=== PATIENT | male | born 1975 | race Two or more races ===

== ENCOUNTER 2024-11-29 07:52 | Emergency (ER) | payer MEDICAID, OTHER ==
[~2024-11-29] VITALS: Ht 170.2 cm; Wt 90.7 kg
[2024-11-29 08:05] VITALS: TEMP 98.5
[2024-11-29 10:17] VITALS: BP 156/100; PULSE 85; RESP 16; O2SAT 95
--- NOTE | 2024-11-29 10:42 | ED.PDOC ---
Back pain HPI HPI Comments A 48 year old male presents to the ED c/o right-sided neck pain. Patient states he woke up today at about 0400 and was experiencing right-sided neck pain that is worse with movement. Denies neck injury, fever, SOB, chest pain, abdominal pain, nausea, vomiting, diarrhea, headache, dizziness, vision changes, or numbness/tingling of extremities. No other symptoms or modifying factors reported at this time. Patient is alert and oriented x4 and has a stable gait. Chief Complaint: Neck Pain Time Seen by MD: 08:14 Reviewed Notes: Nurses Notes, Medications, Allergies Allergies: Coded Allergies: NO KNOWN ALLERGIES (Unverified , 11/29/24) Home Meds Active Scripts Naproxen (Naproxen) 500 Mg Tab, 500 MG PO BIDPC for 10 Days, #20 TAB 0 Refills Prov:MARY GARRISON NP 11/29/24 Methocarbamol (Methocarbamol) 500 Mg Tab, 500 MG PO Q6HP PRN for 10 Days, #40 TAB 0 Refills Prov:MARY GARRISON NP 11/29/24 Information Source: Patient Mode of Arrival: Ambulatory Timing: Hours Duration: Since onset, Hours Location of Back pain: (R) Cervical Severity: Moderate Prehospital treatment: None Quality: Aching, Cramping Onset: Spontaneous History of: None Modifying Factors: Movement Associated signs and symptoms: None Past Medical History PAST MEDICAL HISTORY: Denies Surgical History: Denies all surgeries Social History Smoker: Non-Smoker Alcohol: Denies ETOH Use Drugs: Denies Drug Use Lives In: Home Constitutional: denies: chills, diaphoresis, fatigue, fever, malaise, sweats, weakness, others EENTM: denies: blurred vision, double vision, ear bleeding, ear discharge, ear drainage, ear pain, ear ringing, eye pain, eye redness, hearing loss, mouth pain, mouth swelling, nasal discharge, nose bleeding, nose congestion, nose pain, photophobia, tearing, throat pain, throat swelling, voice changes, others Respiratory: denies: cough, hemoptysis, orthopnea, SOB at rest, shortness of breath, SOB with excertion, stridor, wheezing, others Cardiovascular: denies: chest pain, dizzy spells, diaphoresis, Dyspnea on exe rtion, edema, irregular heart beat, left arm pain, lightheadedness, palpitations, PND, syncope, others Gastrointestinal: denies: abdomen distended, abdominal pain, blood streaked bowels, constipated, diarrhea, dysphagia, difficulty swallowing, hematemesis, melena, nausea, poor appetite, poor fluid intake, rectal bleeding, rectal pain, vomiting, others Genitourinary: denies: burning, dysuria, flank pain, frequency, hematuria, incontinence, penile discharge, penile sore, pain, testicle pain, testicle swelling, urgency, others Neurological: denies: dizziness, fainting, headache, left sided numbness, left sided weakness, numbness, paresthesia, pre-existing deficit, right sided numbness, right sided weakness, seizure, speech problems, tingling, tremors, weakness, others Musculoskeletal: reports: neck pain; denies: back pain, gout, joint pain, joint swelling, muscle pain, muscle stiffness, others Integumetry: denies: bruises, change in color, change in hair/nails, dryness, laceration, lesions, lumps, rash, wounds, others Allergic/Immunocompromised: denies: Difficulty Healing, Frequent Infections, Hives, Itching, others Hematologic/Lymphatic: denies: anemia, blood clots, easy bleeding, easy bruising, swollen glands, others Endocrine: denies: excessive hunger, excessive sweating, excessive thirst, excessive urination, flushing, intolerance to cold, intolerance to heat, unexplained weight gain, unexplained weight loss, others Psychiatric: denies: anxiety, bipolar disorder, depression, hopeless, panic disorder, schizophrenia, sleepless, suicidal, others All Other Systems: Reviewed and Negative Physical Exam General Appearance: No Apparent Distress, Normal HEENT: Normal ENT Inspection, Pharynx Normal, TMs Normal Neck: Limited Range of Motion, Other (Spurling's test positive) Respiratory: Chest Non-Tender, Lungs Clear, No Accessory Muscle Use, No Respiratory Distress, Normal Breath Sounds Cardiovascular: No Edema, No JVD, No Murmur, No Gallop, Normal Peripheral Pulses, Regular Rate/Rhythm Breast Exam: Deferred Gastrointestinal: No Organomegaly, Non Tender, No Pulsatile Mass, Normal Bowel Sounds, Soft Genitalia: Deferred Pelvic: Deferred Rectal: Deferred Extremities: No calf tenderness, Normal capillary refill, Normal inspection, Normal range of motion, Non-tender, No pedal edema Musculoskeletal : Apperance: Normal Neurologic: Alert, roto rooter operator II-XII nml as Tested, No Motor Deficits, Normal Affect, Normal Mood, No Sensory Deficits Cerebellar Function: Normal Reflexes: Normal Skin: Dry, Normal Color, Warm Lymphatic: No Adenopathy Was a procedure done? Was a procedure done?: No Back Pain Differential Dx Differential Diagnosis: Musculoskeletal Pain, Other (Torticollis, cervical radiculopathy, cervical muscle strain) X-Ray, Labs, Meds, VS Vital Signs Date Time Temp Pulse Resp B/P (MAP) Pulse Ox O2 Delivery O2 Flow Rate FiO2 11/29/24 10:17 85 16 156/100 (118) 95 11/29/24 08:05 98.5 72 20 150/97 (114) 97 98.5 X-Ray, Labs, Meds, VS Comment + neck pain radiating to bilateral upper extremities ED Workup: Defer C-Spine imaging given negative by NEXUS criteria Given History, Exam the patient appears to have a cervical radiculopathy. Patient appears to be low risk for complications or other emergent conditions such as anginal equivalent, renea cervical instability, arterial dissection, osteomyelitis, epidural abscess, central cord syndrome, c-spine fracture, CVA, other spinal emergencies Rx: NSAIDs, outpatient physical therapy evaluation and recommendation for home exercises in the interim Disposition: Discharge. The patient has been given strict return precautions and understands the need to follow up within 48 hours with their primary care provider External Medical Records Reviewed: Independent historians: Patient Social Determinants of Health: [None] Reviewed and interpreted results: None Radiology imaging ordered: None Treatments ordered: TORADOL 30 MG IM, NORCO 7.5/325 MG, SOLU-MEDROL 125 MG IM Procedures Performed: None Critical Care Time: None I have discussed the patient with the attending physician [physician's name] and he agrees with the patient's plan of care and disposition. Based on history of present illness, and physical exam, patient will be discharged home. Discussed plan for discharge home with Rx [Robaxin and Naproxen 500mg]. Medication warnings given. Shared Decision Making: Discussed with patient their workup was normal. Patient instructed to follow up with primary care provider in 1-2 days for re-evaluation of symptoms. Patient verbalizes understanding to return to ED for new or worsening symptoms or if follow up with PCP cannot be obtained. Patient feels comfortable going home at this time. All questions addressed at time of discharge. Time of 1ST Reevaluation: 11:00 Reevaluation 1ST: Improved Patient Education/Counseling: Diagnosis, Treatment, Need For Follow Up Family Education/Counseling: Diagnosis, Treatment, Need For Follow Up Departure 1 Departure Time of Disposition: 11:00 Impression: Primary Impression: Cervical radiculopathy Disposition: HOME / SELF CARE / HOMELESS Condition: Stable Additional Instructions: Follow up with PCP in 1-2 days. Take medications as prescribed. Return to the ED for any new or worsening symptoms. e-Prescriptions Naproxen (Naproxen) 500 Mg Tab 500 MG PO BIDPC for 10 Days, #20 TAB 0 Refills Prov: MARY GARRISON NP 11/29/24 Methocarbamol (Methocarbamol) 500 Mg Tab 500 MG PO Q6HP PRN for 10 Days, #40 TAB 0 Refills Prov: MARY GARRISON NP 11/29/24 Discharged With: Self, Spouse Critical Care Note Critical Care Time?: No Stability Stability form required: No Heart Score Heart Score: Heart Score Response (Comments) Value History N/A 0 EKG N/A 0 Age N/A 0 Risk Factors N/A 0 Troponin N/A 0 Total 0 I personally scribed for BILL ARMENTA ([email or web address]) on 11/29/24 at 10:42. Electronically submitted by Dioni Murphy ([email or web address]). BILL ARMENTA Nov 29, 2024 10:42 MARY GARRISON NP Nov 29, 2024 11:02
[2024-11-29] MEDS ORDERED: NAPR-746 PO (11:01)
[2024-11-29] MEDS ORDERED: METH-1181 PO (11:01)
[2024-11-29] MEDS: KETOROLAC TROMETH 30 MG/ML 1ML VIAL IM ONE (11:04)
[2024-11-29] MEDS: methylPREDNISolone SOD SUCC 125 MG/2 ML VL IM ONE (11:04)
[2024-11-29] MEDS: HYDROcodone-ACET 7.5/325MG TAB PO ONE (11:05)
== END 2024-11-29 11:10 | disposition home or self-care (01) ==
LOC: ER 07:52
DX: M54.12 Radiculopathy, cervical region (principal)
CPT/HCPCS: 96372; 99284; J1885; J2919